=== PATIENT | female | born 1980 | race Caucasian/White ===

== ENCOUNTER 2022-01-08 13:01 | Emergency (ER) | payer OTHER, SELFPAY ==
[2022-01-08 13:03] VITALS: BP 146/86; PULSE 107; RESP 20; TEMP 36.4; O2SAT 98; BMI 33.8
--- NOTE | 2022-01-08 13:11 | RAD_ITS ---
STUDY: X-RAY - RIGHT KNEE REASON FOR EXAM: Female, 41 years old. injury TECHNIQUE: 4 view(s) of the knee. COMPARISON: None. FINDINGS: Normal visualized distal femur. Normal visualized proximal tibia and fibula. Normal proximal tibiofibular articulation. Normal medial femorotibial compartment. Normal lateral femorotibial compartment. Normal patellofemoral articulation. There is a 2 mm density between the lower pole of the patella and the tibial tubercle. This could represent loose body or could represent foreign body. RAD/Knee 4 or More Views IMPRESSION: 2 mm density between lower pole of patella and tibial tubercle. This could represent loose body or could represent radiopaque foreign body. Electronically Signed: Lopez Biggs MD, SCOTT at 13:42 EDT ,
--- NOTE | 2022-01-08 13:19 | ED.VIS.LOWEX ---
HPI History of Present Illness HPI Narrative: Right knee injury yesterday while wrestling with her son. Chief Complaint: Lower Extremity Injury Informant: patient Occured/Mechanism Mechanism/Context: Yes injury Onset/Context/Timing Onset: Yesterday Context: Sudden Onset Timing: Continuous Quality of Pain: Dull and Aching Current Severity: Gone Maximum Severity: Mild Associated Symptoms Associated Symptoms: Negative for Parasthesia, Weakness or Loss of Funtion Narrative Narrative: 42-year-old female no seen past medical or surgical history. Was wrestling with her son yesterday when she felt something in her knee and has pain now when she starts to walk. Says limited weightbearing. While lying in bed she denies any pain. She is never had a knee problems or knee history nor any knee surgery. Denies any other complaints. Prior similar symptoms: No Recent Illness/Hospitalization: No PFSH PFSH Medical History no medical history no medical history Allergy/AdvReac Type Severity Reaction Status Date / Time amoxicillin Allergy Hives Verified 01/08/22 13:02 Sulfa (Sulfonamide Allergy Hives Verified 01/08/22 13:02 Antibiotics) Social History Smoking Status: Current every day smoker tobacco type: cigarettes ROS ROS ED ROS Narrative Denies recent illness. Review of Systems ROS Unobtainable: Denies due to encephalopathy Constitutional Constitutional ED: Denies chills or fever(s) Eyes Eyes: Denies blurry vision ENT ENT ED: Denies ear pain Cardiovascular Cardiovascular: Denies chest pain Respiratory/Chest Respiratory/Chest: Denies cough or dyspnea Gastrointestinal Gastrointestinal: Denies abdominal pain or constipation Genitourinary Genitourinary ED: Denies dysuria or hematuria Musculoskeletal Musculoskeletal: Denies arthralgias Integumentary Denies abscess Neurologic Neurologic: Denies headache(s) Psychiatric Psychiatric: Denies anxiety Endocrine Endocrinology: Denies polydipsia Hematologic/Lymphatic Hematologic/Lymphatic: Denies easy bleeding Allergic/Immunologic Allergic/Immunologic ED: Denies mouth swelling or tongue swelling EXAM Physical Exam Narrative Exam Narrative: 41-year-old female no acute distress. Vital signs stable afebrile. HEENT exam unremarkable. Lungs are clear. Heart regular rhythm. Chest nontender. Abdomen soft nontender. Neuro intact. Right knee. Minimal swelling. Normal flexion extension. ACL and PCL intact. MCL and LCL intact. No effusion. 1 extensor mechanism intact she can lift her heel off the bed. Right foot dorsi plantarflexion intact. Normal touch sensation. Able to wiggle toes. Normal DP pulse. Otherwise exam unremarkable. Const Vital Signs: 01/08/22 13:03 Temperature 97.6 F L Temperature Source Temporal Pulse Rate 107 H Respiratory Rate 20 H Blood Pressure 146/86 H Blood Pressure Mean 106 Pulse Ox 98 Oxygen Delivery Method Room Air Positive well nourished, well developed and obese; Negative for cachectic, contractures or unkempt General Appearance ED: well developed and NAD; Negative for unkempt, cachectic or contractures Nutritional Appearance: obese; Negative for cachectic HEENT Reports moist mucous membranes normocephalic and atraumatic; Negative for trauma or tenderness Eyes PERRL General Eye ED: Negative for other Neck full ROM and supple Thyroid: Negative for tender or other Lymph Lymphatic: Negative for other Chest Wall palpation of chest normal Chest: Negative for other Resp normal respiratory effort, no retractions and clear to auscultation bilaterally Effort and Inspection: Negative for pain with movement Auscultation: Negative for rales or rhonchi Percussion: Negative for other Cardio regular rate, regular rhythm, S1 normal heart sound, S2 normal heart sound and no murmurs Rate: Negative for bradycardia Rhythm: Negative for abnormal rhythm Bruits: Negative for other GI non-tender, non-distended and no masses Inspection: Negative for abdominal distention Auscultation: normoactive bowel sounds Palpation: soft; Negative for tender or guarding Back/Spine no CVA tenderness General Back: Negative for CVA tenderness Cervical Spine: Negative for cervical spine tenderness Thoracic Spine / Upper Back: Negative for thoracic spinal tenderness Lumbar Spine / Lower Back: Negative for lumbar spinal tenderness or straight leg raise positive - left Extremity normal to inspection and full ROM Extremity Narrative: Minimal swelling right knee. No effusion. ACL PCL intact. MCL and LCL intact. Quadriceps patellar tendon intact. Able to lift her leg. Able do flexion extension. No bony deformity. Right foot and ankle not neurovascular intact. General Extremety ED: Negative for cyanosis or edema General Extremity: Negative for cyanosis or edema Neuro oriented x3, CN's II-XII intact bilaterally, moves all extremities and no sensory deficits noted Sensorium / Orientation: alert, oriented to person, oriented to place and oriented to time; Negative for orientation impaired Psych mental status grossly normal Appearance: Negative for unkempt Speech: No other Mood & Affect: Negative for anxious Skin no wounds Lesions: no lesions Rashes: no rashes Trauma: Negative for abrasion MDM MDM MDM Narrative Medical decision making narrative: 41-year-old female wrestling with her son yesterday injured her right knee. Exam benign. X-ray pending. She did not want a thing for pain. Repeat exam unchanged. Offered crutches for ambulation. No weightbearing until tolerated. Follow-up with orthopedics if not improving. Ice and elevate. Motrin for pain and swelling. Radiography Diagnostic Testing: Clinical Impression(s) from Imaging Studies Knee X-Ray 01/08/22 13:11 IMPRESSION: 2 mm density between lower pole of patella and tibial tubercle. This could represent loose body or could represent radiopaque foreign body. Electronically Signed: Lopez Biggs MD, SCOTT at 13:42 EDT Reading Location ID and State: [facility] / [place] Tel , Service support , Left knee x-ray, interpreted by both by the radiologist and myself shows a 2 mm density between the patella and the tibial tubercle which may be a loose body. Avulsion fracture. I discussed this with the patient. Discharge Plan Triage Chief Complaint: Lower Extremity Injury ED Provider: Charly Abreu Dx/Rx/DC Orders Clinical Impression: Left knee sprain Instructions: ED Knee Sprain Primary Care Provider: Care Physician,No Primary Referrals: Nemesio Valentino DO [Med Staff - Active Staff] - 1 Week if not improving Care Physician,No Primary [Primary Care Provider] - Activity Restrictions/Additional Instructions: Ice and elevate your knee to decrease pain and swelling. Start with no weightbearing and increase as tolerated. Call and follow-up with orthopedics if not improving for further evaluation. Disposition Disposition: Home, Self Care
== END 2022-01-08 14:05 | disposition home or self-care (01) ==
PROVIDERS: Emergency Provider Emergency Medicine; Visit Provider Emergency Medicine
DX: S83.92XA Sprain of unspecified site of left knee, initial encounter (principal); F17.210 Nicotine dependence, cigarettes, uncomplicated; E66.9 Obesity, unspecified; X50.9XXA Other and unspecified overexertion or strenuous movements or postures, initial encounter; Y93.72 Activity, wrestling
CPT/HCPCS: 73564; 99283